=== PATIENT | male | born 1980 | race Caucasian/White ===

== ENCOUNTER 2025-03-03 09:40 | Day surgery (SDC) | payer BC ==
[~2025-03-03 09:40] MED LIST: Propofol 200 MG/20 ML SDV ONE; fentaNYL 100 MCG/2 ML SDV ONE
[2025-03-03] MEDS: Lactated Ringers 1,000 ML IV SCH (10:01)
[2025-03-03] MEDS ORDERED: Midazolam 1 MG/ML 2 ML SDV ONE (10:50)
[2025-03-03] MEDS ORDERED: Propofol 200 MG/20 ML SDV ONE (12:33)
== END 2025-03-03 13:57 | disposition home or self-care (01) ==
LOC: VM.SDS 09:40
PROVIDERS: ATTEND Family Medicine
DX: Z12.11 Encounter for screening for malignant neoplasm of colon (principal); K57.30 Diverticulosis of large intestine without perforation or abscess without bleeding; Z80.0 Family history of malignant neoplasm of digestive organs; F32.A Depression, unspecified; F41.9 Anxiety disorder, unspecified; Z79.899 Other long term (current) drug therapy
CPT/HCPCS: J2250; J2704; J3010; J7120